=== PATIENT | female | born 1955 | race Two or more races ===

== ENCOUNTER 2019-09-29 17:36 | Inpatient (IN) | payer OTHER ==
[2019-09-29 23:36] LABS: HCT 39.8 % (34.0-46.0); HGB 12.9 gm/dL (11.4-16.0); MCH 27.8 pg (25.0-35.0); MCHC 32.3 g/dL (31.0-37.0); MCV 86.1 fL (80.0-100.0); Mean Platelet Volume 6.8; Platelet Count 361 k/uL (150-450); RBC 4.63 m/uL (3.80-5.40); RDW 12.4 % (11.5-15.5); WBC 5.8 k/uL (3.8-10.6)
[2019-09-29 23:44] LABS: D-Dimer 0.51 mg/L FEU (<0.60); INR 1.2 (<1.2); Partial Thromboplastin Time 22.7 sec (22.0-30.0); Prothrombin Time 12.1 sec (9.0-12.0)
[2019-09-30 00:08] LABS: Band Neutrophils % 2 %; Lymphocytes # (M) 1.28 k/uL (1.0-4.8); Monocytes # (M) 0.29 k/uL (0-1.0); Neutrophils % (M) 71 %; Nucleated Red Blood Cells 0 /100 WBC (0-0); Total Cells Counted 100
[2019-09-30 00:20] LABS: Albumin 3.9 g/dL (3.5-5.0); C Reactive Protein 18.1 mg/L (<10.0); Calcium 9.2 mg/dL (8.4-10.2); Magnesium 2.3 mg/dL (1.6-2.3); Potassium 3.9 mmol/L (3.5-5.1); Total Bilirubin 0.6 mg/dL (0.2-1.3); Total Protein 7.4 g/dL (6.3-8.2)
[2019-09-30] MEDS ORDERED: ACETAMINOPHEN TAB 325 MG TAB PO PRN (01:40)
--- NOTE | 2019-09-30 01:51 | P.HPIM ---
History of Present Illness H&P Date: 09/30/19 Chief Complaint: cough , SOB I was wearing full PPE during this encounter including N95 mask, face shield, double gloves, gown, and head cover. patient had a surgical mask on during my entire interview. i maintained 6 feet distance with the patient who verbalized understanding about these precautionary measures. except for during my physical exam where i had to be close to the patient. 64 year old female with PTSD . Patient is an RN and works in case management. She had positive COVID 19 testing confirmed. Patient had symptoms for 12 days of mainly cough initially low grade fever, diarrhea, nausea vomiting and body aches. She denies any sick contacts however she recently traveled from [place] to attend her mother's . Patient reports that her symptoms have been worsening since the weekend with more shortness of breath and higher fevers she got results of artistic 2 days ago however she stayed in home isolation and monitoring her symptoms. Today her shortness of breath got worse and decided to quit the hospital for evaluation.. Chest x-ray showing bilateral infiltrates. Patient was transferred to a facility for further care and management to help relieve the load on [facility] Patient otherwise denies any GI bleeding denies any abdominal pain denies any chest pain currently she feels comfortable not in any distress we had a conversation about her diagnosis I answered her questions. patient blood work reviewed and is unremarkable currently patient is on room air COVID test is positive Review of Systems Pertinent positives as noted in HPI. All other systems were reviewed and are negative Past Medical History Past Medical History: No Reported History Additional Past Medical History / Comment(s): PTSD History of Any Multi-Drug Resistant Organisms: None Reported Past Anesthesia/Blood Transfusion Reactions: Postoperative Nausea & Vomiting (PONV) Past Psychological History: PTSD Smoking Status: Never smoker - Past Family History family Family Medical History: No Reported History Medications and Allergies Home Medications Medication Instructions Recorded Confirmed Type RX: Omeprazole 20 mg PO DAILY PRN 09/29/19 09/29/19 History Sertraline [Zoloft] 50 mg PO DAILY 09/29/19 09/29/19 History buPROPion HCL [Wellbutrin SR] 200 mg PO DAILY 09/29/19 09/29/19 History lamoTRIgine [LaMICtal] 50 mg PO DAILY 09/29/19 09/29/19 History Allergies Allergy/AdvReac Type Severity Reaction Status Date / Time morphine Allergy Rash/Hives Verified 09/29/19 22:04 Penicillins Allergy Rash/Hives Verified 09/29/19 22:04 acetaminophen [From NyQuil] AdvReac Hallucinati Verified 09/29/19 22:04 ons codeine AdvReac Nausea & Verified 09/29/19 22:04 Vomiting dextromethorphan AdvReac Hallucinati Verified 09/29/19 22:04 [From NyQuil] ons diphenhydramine AdvReac Hallucinati Verified 09/29/19 22:04 [From Benadryl] ons doxylamine [From NyQuil] AdvReac Hallucinati Verified 09/29/19 22:04 ons pseudoephedrine [From NyQuil] AdvReac Hallucinati Verified 09/29/19 22:04 ons Physical Exam Vitals: Vital Signs Temp Pulse Resp BP Pulse Ox 09/29/19 23:45 98.1 F 63 109/65 97 09/29/19 21:25 99.0 F 76 19 125/77 98 Intake and Output 09/29/19 09/29/19 09/30/19 14:59 22:59 06:59 Intake Total 480 Balance 480 Intake: Oral 480 Other: Voiding Method Toilet Weight 75 kg exam limited as needed, mainly inspection , patient has tested positive, she is clinically doing well . distance maintained to avoid infection and spread of the disease. she is confirmed test positive Constitutional: No acute distress, conversant, pleasant, on room air Eyes: Anicteric sclerae ENMT: NC/AT Neck: Supple, FROM Lungs: Normal respiratory effort, no accessory muscle use Cardiovascular: No peripheral edema Abdominal: Soft Skin: visible portion of the skin Normal temperature, tone, texture, turgor Extremities: no calf muscle tenderness Psychiatric: Alert and oriented to person, place and time Appropriate affect fair judgement Neuro patient moving all extremities , denies focal neuro deficit Lymphatics: deferred Results CBC & Chem 7: 09/29/19 23:17 09/29/19 23:17 Labs: Abnormal Lab Results - Last 24 Hours (Table) 09/29/19 09/29/19 Range/Units 23:17 23:17 PT 12.1 H (9.0-12.0) sec INR 1.2 H (<1.2) C-Reactive Protein 18.1 H (<10.0) mg/L Thrombosis Risk Factor Assmnt - Choose All That Apply Each Risk Factor Represents 2 Points: Age 61-74 years Thrombosis Risk Factor Assessment Total Risk Factor Score: 2 Thrombosis Risk Factor Assessment Level: Low Risk Assessment and Plan Assessment: 62-year-old female with PTSD. Controlled with meds Patient transferred to a facility for further care patient confirmed Covid 19 positive. Currently doing well no respiratory distress patient on room air Anticipated length of stay less than 2 midnights Atypical pneumonia secondary to Covid 19 PTSD Supportive care Monitor oxygen need use oxygen nasal cannula to keep oxygen saturation above 92% Symptomatic control Tylenol as needed Resume home meds CODE STATUS: Full code DVT prophylaxis: Mechanical Discussed with: Patient, ER, RN Anticipated length of stay less than [address]: Home A total of 60 minutes was spent on the care of this complex patient more than 50% of the time was spent in counseling and care coordination.
[2019-09-30] MEDS: buPROPion SR 100 MG TABLET.ER PO SCH (08:13)
[2019-09-30] MEDS: lamoTRIgine 25 MG TAB PO SCH (08:14)
[2019-09-30] MEDS: SERTRALINE 50 MG TAB PO SCH (08:15)
[2019-09-30] MEDS ORDERED: PANTOPRAZOLE 40 MG TABLET PO PRN (09:00)
[2019-09-30 11:18] LABS: Ferritin 517.8 ng/mL (10.0-291.0)
--- NOTE | 2019-09-30 15:18 | P.PN ---
Subjective Progress Note Date: 09/30/19 (Delayed charting see at approx 10am) Principal diagnosis: Shortness of breath So patient is a 64-year-old female with a past medical history of posttraumatic stress disorder who initially presented to [facility] with complaints of fever, diarrhea, nausea, vomiting, and body aches for 12 days. She reports that she had positive Covid 19 testing performed at [facility]. On arrival to the emergency department there she underwent a chest x- ray which showed bilateral infiltrates. She was tested for Covid 19 and that is currently pending. She was transferred here as part of the Covid relief effort. She did well overnight requiring minimal amounts of oxygen. On 09/29 laboratory analysis showed a slightly elevated ferritin of 518, d-dimer normal, see report reactive protein slightly elevated at 18, LDH normal at 607, CK normal at 46. She was requiring oxygen and she said it helped her breathe better. However her room air pulse ox was 94% but did drop to 89% with ambulation. Patient seen and examined at bedside. She reports she still feels "terrible". She is having some nausea, no vomiting, still having a cough and body aches. She states she does not have anyone to pick her up today, and still just doesn't feel well. We had an extensive conversation outlining that oxygen does not help with shortness of breath and less she had hypoxemia and that I suggested she use albuterol inhaler. We also discussed that most patients with Covid 19 will have a relatively benign course and that her blood work looked fairly well and if she was not requiring oxygen in the morning she would be discharged. Objective - Vital Signs Vital signs: Vital Signs Temp 98.3 F 09/30/19 11:15 Pulse 73 09/30/19 11:15 Resp 20 09/30/19 11:15 BP 101/65 09/30/19 11:15 Pulse Ox 94 L 09/30/19 11:15 Intake & Output 09/29/19 09/30/19 09/30/19 18:59 06:59 18:59 Intake Total 960 Balance 960 Weight 75 kg Intake: Oral 960 Other: Voiding Method Toilet # Voids 1 - Exam General: Ill-appearing, no distress, appears at stated age Derm: warm, dry Head: atraumatic, normocephalic, symmetric Eyes: EOMI, no lid lag, anicteric sclera Mouth: no lip lesion, mucous membranes dry Cardiovascular: S1S2 reg, no murmur, positive posterior tibial pulse bilateral, Lungs: Patient with forced expiratory wheeze, no wheezing with normal breathing, no rhonchi, no rales , no accessory muscle use Abdominal: soft, nontender to palpation, no guarding, no appreciable organomegaly Ext: no gross muscle atrophy, no edema, no contractures Neuro: CN II-XI grossly intact, no focal neuro deficits Psych: Alert, oriented, appropriate affect - Labs CBC & Chem 7: 09/29/19 23:17 09/29/19 23:17 Labs: Abnormal Lab Results - Last 24 Hours (Table) 09/29/19 09/29/19 Range/Units 23:17 23:17 PT 12.1 H (9.0-12.0) sec INR 1.2 H (<1.2) Ferritin 517.8 H (10.0-291.0) ng/mL C-Reactive Protein 18.1 H (<10.0) mg/L Assessment and Plan Assessment: Covid 19 with reported atypical pneumonia -Requiring oxygen therapy with ambulation -We'll attempt to obtain records of positive coping 19 testing from [facility] -Start albuterol 4 times daily -Supportive care -Gentle IV fluids - follow CXR until clear GERD -PPI PTSD -Continue home Lamictal and Zoloft DVT prophylaxis: Start heparin as patient is not getting out of bed Discussed with: Patient, nursing Anticipated discharge: Anticipated discharge in a.m. Anticipated discharge place: Home A total of 25 minutes was spent on the care of this complex patient more than 50% of the time was spent in counseling and care coordination.
[2019-09-30] MEDS: HEPARIN SODIUM,PORCINE 5,000 UNIT/ML 1 ML VIAL SQ SCH ×2 (17:23→23:20)
[2019-09-30] MEDS: ALBUTEROL HFA INHALER INHALATION SCH ×2 (20:14→21:00)
[2019-10-01] MEDS: HEPARIN SODIUM,PORCINE 5,000 UNIT/ML 1 ML VIAL SQ SCH ×2 (06:54→06:55)
--- NOTE | 2019-10-01 07:58 | XR ---
EXAMINATION TYPE: XR chest 1V portable DATE OF EXAM: 10/01/2019 HISTORY: Shortness of breath. COMPARISON: None. TECHNIQUE: Single view of the chest is submitted. FINDINGS: Demonstrated are scattered senescent parenchymal change. Bilateral scattered interstitial infiltrates right greater than left. More confluent infiltrate right medial lung base. Rule out COVID. The heart is stable. Hilar and mediastinal structures are within normal limits. Degenerative changes are seen of the dorsal spine. IMPRESSION: 1. Bilateral scattered interstitial infiltrates right greater than left. More confluent infiltrate r ight medial lung base. Rule out COVID.
[2019-10-01 08:03] VITALS: RESP 18
[2019-10-01] MEDS: SERTRALINE 50 MG TAB PO SCH (08:27)
[2019-10-01] MEDS: lamoTRIgine 25 MG TAB PO SCH (08:27)
[2019-10-01] MEDS: buPROPion SR 100 MG TABLET.ER PO SCH (08:28)
[2019-10-01 08:34] LABS: Basophils % (A) 0 %; Eosinophils # (A) 0.1 k/uL (0-0.7); Eosinophils % (A) 1 %; HCT 37.4 % (34.0-46.0); HGB 12.1 gm/dL (11.4-16.0); Lymphocytes # (A) 1.6 k/uL (1.0-4.8); Lymphocytes % (A) 29 %; MCHC 32.4 g/dL (31.0-37.0); MCV 86.3 fL (80.0-100.0); Mean Platelet Volume 6.8; Monocytes # (A) 0.3 k/uL (0-1.0); Monocytes % (A) 6 %; Neutrophils # (A) 3.3 k/uL (1.3-7.7); Neutrophils % (A) 60 %; Platelet Count 403 k/uL (150-450); RBC 4.33 m/uL (3.80-5.40); RDW 12.3 % (11.5-15.5); WBC 5.5 k/uL (3.8-10.6)
[2019-10-01] MEDS: ALBUTEROL HFA INHALER INHALATION SCH ×3 (08:35→15:48)
[2019-10-01 08:51] LABS: Albumin 3.6 g/dL (3.5-5.0); C Reactive Protein 13.3 mg/L (<10.0); Calcium 8.9 mg/dL (8.4-10.2); Total Bilirubin 0.4 mg/dL (0.2-1.3); Total Protein 6.9 g/dL (6.3-8.2)
[2019-10-01 10:57] VITALS: TEMP 98.7
--- NOTE | 2019-10-01 13:18 | P.DS ---
Providers Date of admission: 09/30/19 11:11 Expected date of discharge: 10/01/19 Attending physician: Rosi Tejada DO Primary care physician: Stated None Hospital Course: Discharge Diagnosis: Covid 19 pneumonia Acute hypoxic respiratory failure GERD PTSD Hospital Course: So patient is a 64-year-old female with a past medical history of posttraumatic stress disorder who initially presented to [facility] with complaints of fever, diarrhea, nausea, vomiting, and body aches for 12 days. She reports that she had positive Covid 19 testing performed at [facility]. On arrival to the emergency department there she underwent a chest x- ray which showed bilateral infiltrates. She was tested for Covid 19 and that is currently pending. She was transferred here as part of the Covid relief effort. She did well overnight requiring minimal amounts of oxygen. On 09/29 laboratory analysis showed a slightly elevated ferritin of 518, d-dimer normal, see report reactive protein slightly elevated at 18, LDH normal at 607, CK normal at 46. She was requiring oxygen and she said it helped her breathe better. However her room air pulse ox was 94% but did drop to 89% with ambulation. She was monitored again overnight. Repeat chest x-ray here did continue to show bilateral infiltrates. However she was feeling much improved. Her laboratory analysis showed a normal CBC, normal AST and ALT, normal LDH, normal CK, and a downtrending CRP area and she did drop to 87% on room air with ambulation and she'll be discharged home with oxygen. She'll also be sent home with an albuterol inhaler. She'll continue to use this as needed. Patient seen and examined at bedside. She denies any chest pain, shortness of breath is much improved, cough is much improved and she states she feels much better than yesterday. Vital signs reviewed and stable. General: non toxic, no distress, appears at stated age Derm: warm, dry Head: atraumatic, normocephalic, symmetric Eyes: EOMI, no lid lag, anicteric sclera Mouth: no lip lesion, mucus membranes moist Cardiovascular: S1S2 reg, no murmur, positive posterior tibial pulse bilateral, Lungs: CTA bilateral, no rhonchi, no rales , no accessory muscle use Abdominal: soft, nontender to palpation, no guarding, no appreciable organomegaly Ext: no gross muscle atrophy, no edema, no contractures Neuro: CN II-XI grossly intact, no focal neuro deficits Psych: Alert, oriented, appropriate affect A total of 25 minutes of time were spent preparing this complex discharge summary . Patient Condition at Discharge: Stable Plan - Discharge Summary New Discharge Prescriptions: No Action lamoTRIgine [LaMICtal] 50 mg PO DAILY Sertraline [Zoloft] 50 mg PO DAILY Omeprazole 20 mg PO DAILY PRN PRN Reason: Heartburn buPROPion HCL [Wellbutrin SR] 200 mg PO DAILY Discharge Medication List Omeprazole 20 mg PO DAILY PRN 09/29/19 [History] Sertraline [Zoloft] 50 mg PO DAILY 09/29/19 [History] buPROPion HCL [Wellbutrin SR] 200 mg PO DAILY 09/29/19 [History] lamoTRIgine [LaMICtal] 50 mg PO DAILY 09/29/19 [History] Activity/Diet/Wound Care/Special Instructions: [facility] will deliver portable tanks to the patient's bedside before discharge and a concentrator to her sister's house in [place] today. Please contact [facility] when you intend to go back to [place]: [phone]
[2019-10-01 15:45] VITALS: BP 140/67; PULSE 80
[2019-10-02] MEDS ORDERED: buPROPion SR 100 MG TABLET.ER PO SCH (09:00)
== END 2019-10-01 18:36 | disposition home or self-care (01) | DRG 177 ==
LOC: UNDOADMOB 17:45 → 4SSUR 17:45 → OBSVTOIN 09-30 11:11
PROVIDERS: ADMIT Internal Medicine; ATTEND Internal Medicine
DX: U07.1 COVID-19 (principal); J96.01 Acute respiratory failure with hypoxia; J12.89 Other viral pneumonia; K21.9 Gastro-esophageal reflux disease without esophagitis; F43.10 Post-traumatic stress disorder, unspecified; Z79.899 Other long term (current) drug therapy; Z88.6 Allergy status to analgesic agent; Z88.5 Allergy status to narcotic agent; Z88.0 Allergy status to penicillin; Z88.8 Allergy status to other drugs, medicaments and biological substances
CPT/HCPCS: 71045; 80053; 82550; 82728; 83615; 83735; 83880; 84145; 84484; 85025; 85379; 85610; 85730; 86140; 87040; 93005; 94640